=== PATIENT | female | born 1935 | race Caucasian/White ===

== ENCOUNTER 2016-05-02 10:58 | Emergency (ER) | payer MEDICARE, OTHER ==
[2016-05-02 11:36] VITALS: BP 146/75
--- NOTE | 2016-05-02 12:14 | UC ---
Ear Complaint HPI - HPI Summary HPI Summary: SEVERAL WEEKS OF LEFT EAR FULLNESS, FEELS LIKE HEARING IS MUFFLED. NO FEVER. NO SORE THROAT. NO DIZZINESS. NO HEADACHE. - History of Current Complaint Chief Complaint: UCEar Stated Complaint: EAR PLUGGED Time Seen by Provider: 05/02/16 11:27 Hx Obtained From: Patient Hx Last Menstrual Period: menopause Onset/Duration: Gradual Onset, Lasting Days, Still Present Severity Initially: Mild Severity Currently: Moderate Associated Signs/Symptoms: Positive: Hearing Loss, Foreign Body Sensation - Allergies/Home Medications Allergies/Adverse Reactions: Allergies Allergy/AdvReac Type Severity Reaction Status Date / Time No Known Allergies Allergy Verified 09/28/15 10:27 PMH/Surg Hx/FS Hx/Imm Hx Previously Healthy: Yes Endocrine History Of: Denies: Diabetes, Thyroid Disease Cardiovascular History Of: Reports: Cardiac Disorders, Pacemaker/ICD, Congestive Heart Failure, Atrial Fibrillation Denies: Hypertension Respiratory History Of: Reports: COPD, Asthma GI/ History Of: Denies: Ulcer Cancer History Of: Denies: Breast Cancer - Surgical History Surgical History: Yes Surgery Procedure, Year, and Place: Pacer, AID, Left ARTIFICIAL HIP - Family History Known Family History: Negative: Respiratory Disease - Social History Occupation: Retired Lives: With Family Alcohol Use: Weekly Substance Use Type: None Smoking Status (MU): Former Smoker Amount Used/How Often: 1 PPD X 40 YRS When Did the Patient Quit Smoking/Using Tobacco: 1991 Review of Systems Constitutional: Negative Skin: Negative Eyes: Negative ENT: Ear Ache Respiratory: Negative Cardiovascular: Negative Gastrointestinal: Negative Genitourinary: Negative Motor: Negative Neurovascular: Negative Musculoskeletal: Negative Neurological: Negative Psychological: Negative All Other Systems Reviewed And Are Negative: Yes Physical Exam Triage Information Reviewed: Yes Appearance: Well-Appearing, No Pain Distress, Well-Nourished Vital Signs: Initial Vital Signs Temp 98.6 F 05/02/16 11:28 Pulse 68 05/02/16 11:28 Resp 18 05/02/16 11:28 BP 146/75 05/02/16 11:28 Pulse Ox 94 05/02/16 11:28 Vital Signs Reviewed: Yes Eye Exam: Normal ENT: Positive: Hearing grossly normal, Pharynx normal, TMs normal - S/P BILATERAL EAR IRRIGATION, Other: - BILATERAL CERUMEN IMPACTION Dental Exam: Normal Neck exam: Normal Neck: Positive: Supple, Nontender, No Lymphadenopathy Respiratory Exam: Normal Respiratory: Positive: Chest non-tender, Lungs clear, Normal breath sounds, No respiratory distress, No accessory muscle use Cardiovascular Exam: Normal Cardiovascular: Positive: RRR, No Murmur, Pulses Normal, Brisk Capillary Refill Abdominal Exam: Normal Abdomen Description: Positive: Nontender, No Organomegaly Musculoskeletal Exam: Normal Neurological Exam: Normal Psychological Exam: Normal Skin Exam: Normal Ear Complaint Course/Dx - Differential Dx/Diagnosis Differential Diagnosis/HQI/PQRI: Otitis Externa, Otitis Media, Perforated TM, Pharyngitis, URI Provider Diagnoses: BILATERAL CERUMEN IMPACTION Discharge - Discharge Plan Condition: Stable Disposition: HOME Patient Education Materials: Cerumen Impaction (ED) Referrals: Loulou Montesinos MD [Primary Care Provider] -
== END 2016-05-02 12:24 | disposition home or self-care (01) ==
LOC: UCEAST 10:58
DX: H61.23 Impacted cerumen, bilateral (principal); Z87.891 Personal history of nicotine dependence; Z51.81 Encounter for therapeutic drug level monitoring; Z79.01 Long term (current) use of anticoagulants; I48.2 Chronic atrial fibrillation; R03.0 Elevated blood-pressure reading, without diagnosis of hypertension
CPT/HCPCS: 69210; 99212; 99213; G0463

== ENCOUNTER 2017-08-22 07:26 | Emergency (ER) | payer MEDICARE, OTHER ==
[2017-08-22 07:39] VITALS: BP 134/77
--- NOTE | 2017-08-22 08:27 | RAD ---
INDICATION: Pain at base of LEFT thumb post fall yesterday. Swelling. COMPARISON: No relevant prior exams [place] [facility] [place]. TECHNIQUE: AP, lateral, and oblique views LEFT hand. AP, lateral, and oblique views LEFT wrist REPORT: Mild hyperextension at the first metacarpal phalangeal joint noted. Negative for dislocation at the hand or wrist. Subtle longitudinal lucencies at the base of the first metacarpal are indeterminant and may reflect a nondisplaced intra-articular fracture. There is advanced joint space narrowing, subchondral sclerosis, and subchondral cystic change as well as mild osteophytosis at the trapezium first metacarpal articulation. Advanced osteoarthritis also present at the distal interphalangeal joints. Nonfocal soft tissue swelling about the wrist and hand. IMPRESSION: 1. Potential grossly nondisplaced intra-articular fracture at the base of the first metacarpal. 2. 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
--- NOTE | 2017-08-22 08:27 | RAD ---
INDICATION: Pain at base of LEFT thumb post fall yesterday. Swelling. COMPARISON: No relevant prior exams available on the [facility] [place] PACS for comparison. TECHNIQUE: AP, lateral, and oblique views LEFT hand. AP, lateral, and oblique views LEFT wrist REPORT: Mild hyperextension at the first metacarpal phalangeal joint noted. Negative for dislocation at the hand or wrist. Subtle longitudinal lucencies at the base of the first metacarpal are indeterminant and may reflect a nondisplaced intra-articular fracture. There is advanced joint space narrowing, subchondral sclerosis, and subchondral cystic change as well as mild osteophytosis at the trapezium first metacarpal articulation. Advanced osteoarthritis also present at the distal interphalangeal joints. Nonfocal soft tissue swelling about the wrist and hand. IMPRESSION: 1. Potential grossly nondisplaced intra-articular fracture at the base of the first metacarpal. 2. 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
--- NOTE | 2017-08-22 08:49 | UC ---
Balta Fontanez Tenzin, scribed for Carol Doran MD on 08/22/17 at 0845 . Minor Trauma HPI - HPI Summary HPI Summary: Pt is an 82 years old female presenting to the complaining of pain in her left knee, hand and shoulder from a fall yesterday. Pt rates the pain at 3/10 in severity and describes it as aching. Pt reports that she was in parking lot yesterday lost her balance and fell. She reports that she did not LOC. Pt denies head or neck pain. Pt has been ambulating without difficulty since. pt with mild discomfort and swelling on left hand, palmar aspect. mild discomfort with movement of thumb - wanted to get checked. No open wounds. No other injuries or complaints. No aggravating and alleviating factors were noted. She took Tylenol for the pain. She takes one aspirin a day and is on a Eliquis for a fib Denies syncope, head or neck pain. She sees a physical therapist knees. Pt's medications reviewed this visit - History of Current Complaint Chief Complaint: UCTrauma Stated Complaint: HAND INJURY Hx Obtained From: Patient Hx Last Menstrual Period: menopause Onset/Duration: Gradual Onset, Still Present Severity Currently: Mild Pain Intensity: 3 Pain Scale Used: 0-10 Numeric Mechanism Of Injury: Fall From A Standing Position Aggravating Factor(s): Nothing Alleviating Factor(s): Nothing - Allergies/Home Medications Allergies/Adverse Reactions: Allergies Allergy/AdvReac Type Severity Reaction Status Date / Time No Known Allergies Allergy Verified 09/28/15 10:27 Home Medications: Home Medications Apixaban* [Eliquis*] 5 mg PO DAILY 08/22/17 [History Confirmed 08/22/17] Furosemide [Furosemide] 20 mg PO DAILY 08/22/17 [History Confirmed 08/22/17] Potassium Chlor TAB* [Klor Con ER TAB 10 MEQ*] 1 tab PO DAILY 08/22/17 [History Confirmed 08/22/17] PMH/Surg Hx/FS Hx/Imm Hx - Additional Past Medical History Additional PMH: NEGATIVE: CVA. Previously Healthy: No Cardiovascular History: Cardiac Disease, Pacemaker/ICD, Atrial Fibrillation - Surgical History Surgical History: Yes Surgery Procedure, Year, and Place: Pacer, AICD, Left ARTIFICIAL HIP - Family History Known Family History: Negative: Respiratory Disease - Social History Occupation: Retired Lives: Alone Alcohol Use: Weekly Substance Use Type: None Smoking Status (MU): Former Smoker Amount Used/How Often: 1 PPD X 40 YRS When Did the Patient Quit Smoking/Using Tobacco: 1991 Review of Systems Constitutional: Negative Skin: Negative Eyes: Negative ENT: Negative Respiratory: Negative Cardiovascular: Negative Gastrointestinal: Negative Genitourinary: Negative Motor: Negative Neurovascular: Negative Musculoskeletal: Other: - left knee, hand and shoulder pain. Neurological: Negative Psychological: Negative All Other Systems Reviewed And Are Negative: Yes Physical Exam - Summary Physical Exam Summary: Vital Signs Reviewed: Yes A+Ox3, no distress Eyes: Conjunctiva Clear, GARY. EOM intact and full ENT: Hearing grossly normal TM x 2 clear, mmoist, uvula midline, no exudate, no erythema Neck: Positive: Supple Respiratory: Positive: No respiratory distress, No accessory muscle use + CTA throughout no w/r Cardiovascular: nl s1, s2 no m/r CBT <2 sec abd soft + BS nt/nd no guarding, no distension Musculoskeletal Exam: ADEN x 4 without difficulty Strength Intact, ROM Intact + flex/ext right elbow, wrsit + pronate/supinate No tenderness carpals mild discomfort base 1st MC no pain phalanges + oppons, flex/ext thumb all MCP no snuffbox pain Neurological: Positive: Alert, + sensation throughout Psychological: Positive: Normal Response To Family Skin: Positive: no rash, mild ecchymossi thenar eminence no open wounds Triage Information Reviewed: Yes Vital Signs: Initial Vital Signs Temp 98.2 F 08/22/17 07:35 Pulse 79 08/22/17 07:35 Resp 16 08/22/17 07:35 BP 134/77 08/22/17 07:35 Pulse Ox 99 08/22/17 07:35 Diagnostics - Radiology LEFT HAND X RAY Radiology Interpretation Completed By: Radiologist - IMPRESSION: 1. Potential grossly nondisplaced intra-articular fracture at the base of the first metacarpal. 2. 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 LEFT WRIST X RAY Radiology Interpretation Completed By: Radiologist - IMPRESSION: 1. Potential grossly nondisplaced intra-articular fracture at the base of the first metacarpal. 2. 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 Minor Trauma Course/Dx - Course Course Of Treatment: pt with mechanical fall yesterday - no syncope. Pt with mild discomfort base left hand (RHD) and mild ecchymosis. imaging with ? fx. thumbs spica splint applied by RN. ice. elevate. ortho. no concern for palmar hematoma. pt comfortable with plan - Differential Dx/Diagnosis Provider Diagnoses: 1st MC fx right non displaced Discharge - Sign-Out/Discharge Documenting (check all that apply): Discharge/Admit/Transfer - Discharge Plan Condition: Stable Disposition: HOME Patient Education Materials: Finger Fracture (ED) Referrals: Yasmine Irwin MD [Medical Doctor] - Loulou Montesinos MD [Primary Care Provider] - Additional Instructions: - wear splint as much as possible until you are seen in follow-up - Okay to take tylenol every 6 hours for pain. Take with food - Okay to apply ice (wrapped in a towel) 20 minutes at a time, 2-3 times a day -Contact your orthopedic doctor's office (Dr. Irwin) to schedule a follow-up appointment. -contact Dr. Irwin or your doctor with questions or concerns - Billing Disposition and Condition Condition: STABLE Disposition: Home The documentation as recorded by the Balta angulo Tenzin accurately reflects the service I personally performed and the decisions made by , Carol Doran MD.
== END 2017-08-22 08:50 | disposition home or self-care (01) ==
LOC: UCEAST 07:26
DX: S62.235A Other nondisplaced fracture of base of first metacarpal bone, left hand, initial encounter for closed fracture (principal); M25.562 Pain in left knee; M25.512 Pain in left shoulder; W18.30XA Fall on same level, unspecified, initial encounter; Y93.9 Activity, unspecified; Y92.481 Parking lot as the place of occurrence of the external cause; Z87.891 Personal history of nicotine dependence; Z95.0 Presence of cardiac pacemaker; Z96.642 Presence of left artificial hip joint
CPT/HCPCS: 99212; G0463

== ENCOUNTER 2017-09-17 08:20 | Inpatient (IN) | payer MEDICARE, OTHER ==
--- NOTE | 2017-09-04 15:56 | HP ---
HISTORY AND PHYSICAL: DATE OF ADMISSION/SURGERY: 09/17/17 DATE OF OFFICE VISIT: 09/04/17 SURGEON: Yasmine Irwin MD * (DICTATED BY VAN MARCH) PROCEDURE: Left total knee arthroplasty. CHIEF COMPLAINT: Left knee pain. HISTORY OF PRESENT ILLNESS: Ms. Pollard is an 82-year-old female with continued complaints of left knee pain. She has failed conservative treatment and elected to proceed with a left total knee arthroplasty, which is scheduled for 09/17/17. PAST MEDICAL HISTORY: AFib, COPD, pacemaker, cardiomyopathy, and sleep apnea. PAST SURGICAL HISTORY: Left total hip arthroplasty, pacemaker implantation x2, appendectomy, and breast biopsy. CURRENT MEDICATIONS: 1. Eliquis 5 mg twice daily. 2. Symbicort 2 puffs twice daily. 3. Coreg 25 mg twice a day. 4. Furosemide 20 mg daily. 5. Klor-Con 10 mEq daily. 6. Oxygen 2 L at night. 7. Tudorza Pressair 2 puffs daily. 8. Losartan potassium 25 mg once a day. 9. Calcium with vitamin D. 10. Multivitamin. 11. Tylenol as needed. ALLERGIES: No allergies. FAMILY HISTORY: Stroke and rheumatoid arthritis. SOCIAL HISTORY: An 82-year-old female, she lives alone. She does not smoke or use drugs. Uses occasional alcohol. REVIEW OF SYSTEMS: A complete 14-point review of systems was reviewed with the patient, positive for COPD and shortness of breath. She denies history of DVT, PE, hepatitis, HIV, or anesthesia problems. PHYSICAL EXAMINATION GENERAL: She is well developed, well nourished, in no acute distress. VITAL SIGNS: She stands 65 inches tall, weighs 188 pounds. Her blood pressure is 114/70 and her heart rate is 82. HEENT: Normocephalic, atraumatic. NECK: Supple. No palpable lymph nodes. PULMONARY: The lungs are clear to auscultation bilaterally. CARDIO: Regular rate and rhythm. Strong S1, S2. ABDOMEN: Soft, nontender, nondistended. NEUROLOGICAL: She is alert and oriented x3. MUSCULOSKELETAL: Left lower extremity: The skin is intact. No open wounds or abrasions. She has a moderate joint effusion. She has some tenderness over the medial and lateral joint lines. Range of motion is 15 to 120 degrees of flexion with patellofemoral crepitus. She is distally neurovascularly intact. ASSESSMENT AND PLAN: Ms. 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 She has failed conservative treatment and elected to proceed with a left total knee arthroplasty, which is scheduled for 09/17/[address] Irwin discussed the risks and the benefits of the surgery at today's visit and all of her questions were answered. She will follow up with Dr. Irwin 2 weeks after the surgery. VAN MARCH [id number]/[facility] #: [id number] TEJAL
[~2017-09-17 08:20] MED LIST: Buffered Lidocaine 0.9% SYRIN* 5 ML/SYR SYRINGE INTRADERM ONE; Famotidine IV* 10 MG/ML 2 ML (20 mg) IV ONE; Gabapentin CAP(*) 300 MG PO ONE
[2017-09-17] MEDS ORDERED: ceFAZolin 2 GM PREMIX (*) 2 GM/50 ML BAG IVPB ONE (08:57)
[2017-09-17] MEDS ORDERED: Famotidine IV* 10 MG/ML 2 ML (20 mg) ONE (09:19)
[2017-09-17] MEDS ORDERED: Gabapentin CAP(*) 300 MG ONE (09:20)
[2017-09-17] MEDS ORDERED: fentaNYL* 50 MCG/ML 2 ML VIAL (100 MCG VIAL) ONE (09:27)
[2017-09-17] MEDS ORDERED: Midazolam* 1 MG/ML 5 ML VIAL (5 MG) ONE (09:27)
[2017-09-17 10:10] LABS: INR 0.95 (0.77-1.02)
[2017-09-17] MEDS ORDERED: Lidocaine 2% PF * 5 ML VIAL ONE ×2 (11:07→12:33)
[2017-09-17] MEDS ORDERED: ROPIVACAINE 5 MG/ML 30 ML BTL (0.5%) ONE (11:07)
[2017-09-17] MEDS ORDERED: Bupivacaine 0.5% PF 10 ML VIAL INJ ONE (11:39)
[2017-09-17] MEDS ORDERED: Ketorolac INJ* 30 MG/ML 1 ML VIAL ONE (12:33)
[2017-09-17] MEDS ORDERED: Ondansetron INJ* 2 MG/ML VIAL ONE (12:33)
[2017-09-17] MEDS ORDERED: Bupivacaine-MPF SPINAL* 7.5 MG/ML - 2ML AMP ONE (12:33)
[2017-09-17] MEDS ORDERED: Glycopyrrolate IV* 0.2 MG/ML 1 ML VIAL ONE (12:33)
[2017-09-17] MEDS ORDERED: Dexamethasone IV* 4 MG/ML 1 ML (4 MG) ONE (12:33)
[2017-09-17] MEDS ORDERED: Phenylephrine IV* 40 MCG/ML 10 ML SYRINGE ONE (13:14)
[2017-09-17] MEDS ORDERED: HYDROmorphone INJ* 0.5 MG/0.5 ML SYRINGE IV PRN (13:18)
[2017-09-17] MEDS ORDERED: oxyCODONE TAB* 5 MG TAB PO PRN ×2 (13:18→14:29)
[2017-09-17] MEDS ORDERED: Acetaminophen TAB* 325 MG PO PRN (13:18)
[2017-09-17] MEDS ORDERED: DiMENhydriNATE IV* 50 MG/ML VIAL IV PUSH PRN (13:18)
[2017-09-17] MEDS ORDERED: Naloxone* 0.4 MG/ML 1 ML VIAL IV PRN (13:18)
[2017-09-17] MEDS ORDERED: Gabapentin CAP(*) 100 MG PO ONE (13:19)
[2017-09-17] MEDS ORDERED: Ondansetron TAB* 4 MG PO PRN (14:29)
[2017-09-17] MEDS ORDERED: Ondansetron INJ* 2 MG/ML VIAL IV PRN (14:29)
[2017-09-17] MEDS ORDERED: oxyCODONE/Acetamin 5/325 MG* TAB PO PRN (14:29)
[2017-09-17] MEDS ORDERED: Cyclobenzaprine TAB* 10 MG PO PRN (14:29)
[2017-09-17] MEDS ORDERED: Bisacodyl SUPP* 10 MG SUPP PR PRN (14:29)
[2017-09-17] MEDS ORDERED: Magnesium Hydroxide LIQ* 30 ML UDC PO PRN (14:29)
[2017-09-17] MEDS ORDERED: Morphine VIAL* 4 MG/ML VIAL (1 ml vial) IV PRN (14:29)
[2017-09-17] MEDS ORDERED: diPHENhydraMINE IV* 50 MG/ML 1 ml VIAL (BENADRYL) IV PRN (14:29)
[2017-09-17] MEDS ORDERED: Polyethylene Glycol 3350* 17 GM PACKET PO PRN (14:29)
[2017-09-17] MEDS ORDERED: Gabapentin CAP(*) 100 MG ONE (15:34)
--- NOTE | 2017-09-17 15:37 | RAD ---
HISTORY: s/p left TKA COMPARISONS: None VIEWS: 2, Frontal and lateral views of the left knee FINDINGS: BONE DENSITY: Normal. BONES: The patient is status post left knee arthroplasty. There is no hardware failure or osteolysis. JOINTS: The patient is status post left knee arthroplasty. ALIGNMENT: There is no dislocation. SOFT TISSUES: Unremarkable. OTHER FINDINGS: There is post surgical change to the soft tissues. IMPRESSION: STATUS POST LEFT KNEE ARTHROPLASTY
[2017-09-17] MEDS: oxyCODONE/Acetamin 5/325 MG* TAB PO PRN (17:43)
[2017-09-17] MEDS ORDERED: Warfarin TAB(*) 4 MG PO ONE (17:45)
[2017-09-17] MEDS ORDERED: Losartan TAB* 25 MG PO SCH (18:00)
[2017-09-17] MEDS: ceFAZolin 1 GM in Dextrose (*) 1 GM/50 ML BAG IVPB SCH (19:53)
[2017-09-17] MEDS ORDERED: Mometasone/Formoter 200/5 MDI INH SCH (21:00)
[2017-09-17] MEDS ORDERED: Aclidinium POWDER MDI(NF) INH SCH (21:00)
--- NOTE | 2017-09-17 21:10 | CONS ---
CONSULTATION REPORT: DATE OF CONSULT: 09/17/17 REFERRED FROM: Dr. Irwin. REFERRED TO: Dr. Rogers. CHIEF COMPLAINT: Left knee pain. REASON FOR CONSULTATION: Medical co-management. HISTORY OF PRESENT ILLNESS: Mrs. Pollard is a pleasant 82-year-old female who carries past medical history significant for hypertension, atrial fibrillation, COPD, cardiomyopathy as well as sleep apnea who was evaluated at [facility] orthopedic office to consider left total knee replacement. The patient unfortunately suffered from chronic left knee pain that failed conservative treatment and she was found to be a good candidate to proceed with left total knee arthroplasty to be scheduled on a later date. The patient presented to the operating room earlier today and had her left knee total replacement and was transferred to the surgical floor after brief recovery period. She denied any significant pain and she was eating dinner. She denied any chest pain, palpitations, shortness of breath, headache, or syncope. We were asked to see the patient for further evaluation and for medical co- management given her chronic medical issues. PAST MEDICAL HISTORY: Significant for: 1. Hypertension. 2. Atrial fibrillation, for which she has been on Eliquis. 3. COPD. 4. Cardiomyopathy. 5. Pacemaker placement. 6. Sleep apnea. 7. Osteoarthritis. PAST SURGICAL HISTORY: Significant for: 1. Left total hip arthroplasty. 2. Pacemaker implantation x2. 3. Appendectomy. 4. Breast biopsy. 5. Postop day #0, status post left total knee arthroplasty. CURRENT MEDICATIONS: Her medications at home include: 1. Eliquis 5 mg p.o. b.i.d. 2. Calcium with vitamin D3 one tablet p.o. daily. 3. Coreg 25 mg p.o. b.i.d. 4. Lasix 20 mg p.o. daily. 5. Losartan 25 mg p.o. daily. 6. Multivitamins 1 tablet a day. 7. Potassium chloride 10 mEq 1 tablet p.o. daily. 8. Symbicort 160/4.5 two puffs inhaled b.i.d. 9. Tudorza 1 puff inhaled b.i.d. ALLERGIES: She has no known drug allergies. FAMILY HISTORY: Significant for stroke and rheumatoid arthritis, but denies any family history of malignancies. SOCIAL HISTORY: She is a nonsmoker who denies illicit drug use. She drinks alcohol occasionally. She is a functional 82-year-old who lives alone. REVIEW OF SYSTEMS: See HPI, otherwise 14-point review of systems was examined and was otherwise negative. PHYSICAL EXAMINATION: She is a pleasant, healthy-appearing elderly female, in no acute distress or discomfort at the time of consultation. Vitals revealed temperature of 98.1, pulse of 75, blood pressure 129/73, respirations of 16, and O2 sat of 100% on room air. HEENT: Head is normocephalic, atraumatic. Sclerae anicteric. PERRLA. EOMs intact. Oropharynx is pink and moist. Neck: Supple. Trachea midline. No cervical adenopathy, thyromegaly, or JVD. Lungs : Clear to auscultation bilaterally. Heart: Regular rate and rhythm. Normal S1 and S2 without rubs, murmurs, or gallops. Back: With normal curvature. No CVA tenderness. Abdomen: Soft, nontender, and nondistended. No hernias, masses , or hepatosplenomegaly. Extremities: Without cyanosis, clubbing, or edema. Left lower extremity with Sukh wrap intact and cooling device around left knee. Pedal pulse is 2+. Neurologic: She is awake, alert, and oriented x4. Rest of neurologic exam is essentially normal. Rectal exam deferred at this time. IMPRESSION: An 82-year-old female who is postop day #0, status post left total knee replacement who has past medical history of hypertension, COPD, and remote of atrial fibrillation for which we were asked to see the patient for medical co - management. ASSESSMENT AND PLAN: 1. Status post left total knee replacement and management by orthopedic team, PT and OT to assess the patient in the morning. She appears to be comfortable at this point with good pain control. 2. Hypertension. We will hold off her furosemide and losartan for the next couple of days and may resume it on or upon discharge to home. I would continue her Coreg at this time and hold her Eliquis per orthopedic team until she is ready for discharge. 3. Chronic obstructive pulmonary disease. The patient will continue to take her inhalers. Some of them might not be on the formulary in the hospital and she already brought them from home and will be verified by the pharmacy and to be used as prescribed at home. 4. DVT prophylaxis. She is on subcu Lovenox and bridged to Eliquis hopefully upon discharge. 5. Code status. She is a full code. TIME SPENT: Approximately 45 minutes spent on consultation of this patient, of which greater than 50% on taking history and performing physical exam. I have discussed the case with my attending, who agreed to plan of care. VAN CHEUNG [id number]/[facility] #: [id number] TEJAL
[2017-09-17] MEDS: Carvedilol TAB* 25 MG PO SCH (21:11)
[2017-09-17] MEDS: Docusate CAP* 100 MG PO SCH (21:11)
[2017-09-17] MEDS: Magnesium Hydroxide LIQ* 30 ML UDC PO SCH (21:12)
[2017-09-17] MEDS: PTO: Aclidinium POWDER MDI(NF) INH SCH (21:48)
[2017-09-18] MEDS: oxyCODONE/Acetamin 5/325 MG* TAB PO PRN ×3 (03:22→12:45)
[2017-09-18] MEDS: ceFAZolin 1 GM in Dextrose (*) 1 GM/50 ML BAG IVPB SCH ×2 (04:06→11:45)
[2017-09-18 06:36] LABS: Hematocrit 34 % (35-47); Hemoglobin 11.2 g/dl (12.0-16.0); Mean Platelet Volume 8.3 um3 (7.4-10.4); Platelet Count 148 10^3/ul (150-450)
[2017-09-18 06:52] LABS: EGFR Non-African American 68.3 (>60)
[2017-09-18] MEDS: Potassium Chlor TAB* 10 MEQ TAB.ER PO SCH (08:19)
[2017-09-18] MEDS: Carvedilol TAB* 25 MG PO SCH ×2 (08:21→20:06)
[2017-09-18] MEDS: Docusate CAP* 100 MG PO SCH ×2 (08:21→20:06)
[2017-09-18] MEDS: Magnesium Hydroxide LIQ* 30 ML UDC PO SCH ×2 (08:21→20:09)
[2017-09-18] MEDS: PTO: Aclidinium POWDER MDI(NF) INH SCH ×2 (08:22→19:35)
[2017-09-18] MEDS: PTO: Budesonide/Formote 160/4.5(NF) MDI INH SCH ×2 (08:22→19:35)
[2017-09-18] MEDS ORDERED: Furosemide TAB* 20 MG PO SCH (09:00)
--- NOTE | 2017-09-18 11:13 | PN ---
Progress Note - Progress Note Date of Service: 09/18/17 SOAP: Subjective: []Patient seen oob in chair. She reports she is feeling well with tolerable left knee pain. She reports she has not yet worked with physical therapy. Denies any chest pain, shortness of breath, dizziness or nausea. Objective: [] Vital Signs Temp 97.7 F 09/18/17 07:20 Pulse 75 09/18/17 07:20 Resp 18 09/18/17 08:15 BP 121/74 09/18/17 07:20 Pulse Ox 98 09/18/17 08:00 Intake & Output 09/17/17 09/18/17 09/18/17 18:59 06:59 18:59 Intake Total 2200 1940 360 Output Total 150 575 Balance 2050 1365 360 Weight 184 lb 15.838 oz Intake: IV Fluids 2200 985 LR 1000 985 Lactated Ringer's 1100 NS 100ML, Cefazolin 2G 100 IVPB 55 ABX - CEFAZOLIN 55 Oral 900 360 Output: Urine 225 Hayes 150 350 Other: # Bowel Movements 0 Laboratory Last Values Hgb 11.2 g/dl (12.0-16.0) L 09/18/17 06:19 Hct 34 % (35-47) L 09/18/17 06:19 Plt Count 148 10^3/ul (150-450) L 09/18/17 06:19 MPV 8.3 um3 (7.4-10.4) 09/18/17 06:19 INR (Anticoag Therapy) 1.00 (0.77-1.02) 09/18/17 06:19 Sodium 141 mmol/L (135-145) 09/18/17 06:19 Potassium 4.3 mmol/L (3.5-5.0) 09/18/17 06:19 Chloride 107 mmol/L (101-111) 09/18/17 06:19 Carbon Dioxide 29 mmol/L (22-32) 09/18/17 06:19 Anion Gap 5 mmol/L (2-11) 09/18/17 06:19 BUN 22 mg/dL (6-24) 09/18/17 06:19 Creatinine 0.80 mg/dL (0.51-0.95) 09/18/17 06:19 Est GFR ( Amer) 82.7 (>60) 09/18/17 06:19 Est GFR (Non-Af Amer) 68.3 (>60) 09/18/17 06:19 BUN/Creatinine Ratio 27.5 (8-20) H 09/18/17 06:19 Glucose 150 mg/dL (70-100) H 09/18/17 06:19 Calcium 8.2 mg/dL (8.6-10.3) L 09/18/17 06:19 General: Well appearing, NAD LLE: Left knee cryo unit and dressing intact. DF/PF intact. DP2+, capillary refill less than two seconds distally. Sensation intact distally. BL calves supple and nontender without erythema, edema or palpable cords Assessment: []POD 1 sp left total knee arthroplasty Plan: []WBAT PT/OT DVT prophylaxis: patient takes eliquis at home. She will be on lovenox in house and will transition to eliquis at her normal dose upon discharge.
[2017-09-18] MEDS: Enoxaparin(*) 30 MG/0.3 ML SYR SUBCUT SCH (11:46)
--- NOTE | 2017-09-18 12:26 | OP ---
DATE OF OPERATION: 09/17/17 - ROOM #350 DATE OF : 31 SURGEON: Yasmine Irwin MD MISSILE FACILITIES REPAIRER: VAN May. Wallace did help throughout the procedure with preparation of the leg, wound retraction, manipulation of the knee, and wound closure. ANESTHESIOLOGIST: Reshma Zamarripa MD ANESTHESIA: General. PRE-OP DIAGNOSIS: Severe end-stage degenerative osteoarthritis of the left knee joint. POST-OP DIAGNOSIS: Severe end-stage degenerative osteoarthritis of the left knee joint. OPERATIVE PROCEDURE: Left total knee arthroplasty. INDICATIONS: Ms. Pollard is an 82-year-old female with years of increasingly severe left knee pain. Radiographs showed [id number] arthritis. She failed conservative treatment with antiinflammatories, pain medications, intraarticular injections, and physical therapy. Due to continued pain and decreased quality of life, the patient elected to undergo a left total knee arthroplasty. Informed consent was obtained from the patient. She understood the risks of surgery included but were not limited to bleeding, infection, damage to nearby structures, continued pain, need for further surgery, intraoperative fracture, nerve palsy, hardware failure or loosening, knee stiffness, loss of motion, stroke, heart attack, blood clot, and . She wished to proceed. TOURNIQUET TIME: 45 minutes. COMPLICATIONS: None. ESTIMATED BLOOD LOSS: 200 cc. SPECIMENS: Bone and cartilage from the left knee joint sent to Pathology. HARDWARE USED: This is [employer] cemented total knee arthroplasty hardware. Two packages of simplex bone cement. For the femur, a Legion left size 5 posterior stabilized femoral component. For the tibia, a size 4 left Tara II tibial baseplate. For the insert, a 9-mm posterior stabilized articular insert size 3-4, for the patellar, a 32, 3-peg all poly patella with 7.5 thickness. INTRAOPERATIVE FINDINGS: Intraoperatively, the patient was noted to have severe end-stage arthritis, which was tricompartmental. She had full-thickness loss of cartilage. She was noted to have significant osteopenia. The patient was noted to have 15-degree flexion contracture with tight hamstrings at the begging of the case. She was brought out into full extension during this surgery. DESCRIPTION OF PROCEDURE: Ms. Pollard was identified in the preanesthesia unit. Her left lower extremity was marked as the correct operative side. Consent was signed and placed in the chart. The patient was taken to the operating room and placed under general anesthesia. A Hayes catheter was placed. Tourniquet was placed on the left side. The left lower extremity was prepped and draped in the usual sterile fashion. Preop time-out was made to correctly identify the patient, side, and site. Appropriate perioperative antibiotics were given within 1 hour of incision. A 12-cm midline incision was made with a 10 blade and carried down to the extensor mechanism. A new 10 blade was used to make a standard medial parapatellar arthrotomy. The patella was subluxed laterally. Electrocautery was used to subperiosteally elevate the soft tissue off the superomedial tibia to the midsagittal plane. The knee was flexed up. Anterior horn of the lateral meniscus and ACL were sharply released. A drill was used to enter the distal femur. Intramedullary distal femoral cutting guide was pinned on the distal femur. Oscillating saw was used to make the distal femoral cut. External rotation guide was pinned on the distal femur and the distal femur was sized to a size 5. Size 5 multi-cutting jig was pinned on the distal femur. Oscillating saw was used to make the appropriate 4 chamfer cuts. The PCL was completely released. The tibia was subluxed anteriorly. Extramedullary tibial cutting guide was pinned on the proximal tibia. Oscillating saw was used to make a proximal tibial cut perpendicular to the mechanical axis of the tibia. The bone was carefully removed. The knee was brought out into full extension. A spacer block had good fit with the knee in full extension. There was good medial and lateral ligamentous balancing. Flexion and extension gaps were well balanced. The knee was flexed up. Lamina hospitalist was placed both medially and laterally. Any remaining meniscus was carefully removed using electrocautery. Curved osteotome was used to remove any posterior osteophytes. A tibial tray and drop shady were placed and once again confirmed a satisfactory tibial cut. Trial size 5 left femur was impacted on to the distal femur. This had excellent fit. The box for the posterior stabilized implant was prepared using a reamer and box-cut osteotome. A size 4 tibial tray trial with a 9-mm insert trial was placed and the knee was taken through range of motion. The knee had full extension to 130 degrees of flexion. There was satisfactory patellofemoral tracking. The patella was everted. 7 mm of patellar bone and cartilage was carefully removed using an oscillating saw. The patella was sized to a size 32. Size 32 guide was used to drill the 3 peg holes. A 7.5 thickness 32 patellar trial was chosen and placed. Knee was taken through range of motion. There was satisfactory patellofemoral tracking. All trials were removed. Tibia was subluxed anteriorly and sized to a size 4. Proximal tibia was prepared using a size 4 keel punch. All bony cut surfaces were copiously irrigated with sterile saline and dried. Final implants were cemented into place starting with the tibia followed by the femur and lastly the patella. A 9-mm insert trial was placed and the knee was brought out into full extension. The tourniquet was turned down at 45 minutes. The knee was copiously irrigated with sterile saline. Electrocautery was used to obtain meticulous hemostasis. Once the cement had fully cured, the insert trial was removed. Any excess cement was carefully removed from around the capsule and hardware. Final insert chosen was a 9-mm posterior stabilized articular insert size 3-4. This was locked into position on the tibial tray. Stability of the insert was checked and rechecked and noted to be stable. The knee was once again copiously irrigated with sterile saline. The extensor mechanism was closed using interrupted #1 Vicryls. The rest of the incision was closed in a layered fashion using 0 and 2-0 Vicryls. Skin was closed using running 3-0 nylon suture. Sterile Xeroform, 4x4s, and Webril were used to cover the incision. Sukh wrap and cold pack were placed over this. The patient' s anesthesia was reversed without difficulty. She was taken to the PACU in stable condition. Intended weightbearing will be weightbearing as tolerated. Intended DVT prophylaxis will be Coumadin with a Lovenox bridge. [id number]/[facility] #: [id number] TEJAL
--- NOTE | 2017-09-18 18:18 | PN ---
Subjective Date of Service: 09/18/17 Interval History: Patient seen and examined. Having episode of confusion today, pulled out IV and took off surgical dressing, Patient knows who and where she is but she said that she couldn't figure out where she was and became afraid in the room and didn't remember having surgery. Able to redirect, ortho at bedside to evaluate and RN replacing IV. Patient not in pain and seems to be trying to re-orient herself. Objective Active Medications: Acetaminophen (Tylenol Tab*) 650 mg PO Q4H PRN PRN Reason: PAIN OR TEMPERATURE Aclidinium [place] (Tudorza Press Mdi(Nf)) 1 puff INH BID [facility] Last Admin: 09/18/17 08:22 Dose: 1 puff Bisacodyl (Dulcolax Supp*) 10 mg UT DAILY PRN PRN Reason: constipation Budesonide/Formoterol Fumarate (Symbicort 160/4.5 (Nf)) 2 puff INH BID [facility] Last Admin: 09/18/17 08:22 Dose: 2 puff Carvedilol (Coreg Tab*) 25 mg PO BID [facility] Last Admin: 09/18/17 08:21 Dose: 25 mg Cyclobenzaprine HCl (Flexeril Tab*) 10 mg PO TID PRN PRN Reason: SPASMS Diphenhydramine HCl (Benadryl Iv*) 12.5 mg IV Q6H PRN PRN Reason: PRURITIS Docusate Sodium (Colace Cap*) 100 mg PO BID [facility] Last Admin: 09/18/17 08:21 Dose: 100 mg Enoxaparin Sodium (Lovenox(*)) 30 mg SUBCUT Q24H [facility] Last Admin: 09/18/17 11:46 Dose: 30 mg Lactated Ringer's (Lactated Ringers 1000 Ml Bag*) 1,000 mls @ 100 mls/hr IV PER RATE [facility] Last Admin: 09/18/17 03:10 Dose: 100 mls/hr Lactulose (Lactulose*) 30 ml PO Q6H PRN PRN Reason: constipation Magnesium Hydroxide (Milk Of Magnesia Liq*) 30 ml PO BID [facility] Last Admin: 09/18/17 08:21 Dose: 30 ml Magnesium Hydroxide (Milk Of Magnesia Liq*) 30 ml PO Q6H PRN PRN Reason: constipation Morphine Sulfate (Morphine Vial*) 2 mg IV Q2H PRN PRN Reason: PAIN Ondansetron HCl (Zofran Inj*) 4 mg IV Q6H PRN PRN Reason: nausea Ondansetron HCl (Zofran Tab*) 4 mg PO Q6H PRN PRN Reason: NAUSEA Oxycodone HCl (Roxycodone Tab*) 10 mg PO Q4H PRN PRN Reason: SEVERE PAIN Oxycodone/Acetaminophen (Percocet 5/325 Tab*) 2 tab PO Q4H PRN PRN Reason: PAIN Last Admin: 09/18/17 12:45 Dose: 2 tab Oxycodone/Acetaminophen (Percocet 5/325 Tab*) 1 tab PO Q4H PRN PRN Reason: PAIN Pharmacy Profile Note (Coumadin Daily Reminder*) 1 note FOLLOW UP 1700 [facility] Last Admin: 09/18/17 15:37 Dose: Not Given Polyethylene Glycol/Electrolytes (Miralax*) 17 gm PO DAILY PRN PRN Reason: Constipation Potassium Chloride (Klor Con Er Tab*) 10 meq PO QAM [facility] Last Admin: 09/18/17 08:19 Dose: Not Given Vital Signs - 8 hr 09/18/17 09/18/17 09/18/17 11:33 11:45 12:45 Temperature 97.7 F Pulse Rate 75 Respiratory 16 16 18 Rate Blood Pressure 96/57 (mmHg) O2 Sat by Pulse 94 Oximetry 09/18/17 09/18/17 09/18/17 15:18 15:36 16:00 Temperature 98.0 F Pulse Rate 75 Respiratory 16 16 Rate Blood Pressure 96/49 (mmHg) O2 Sat by Pulse 92 92 Oximetry Oxygen Devices in Use Now: None Appearance: alert, confused, mild distress Eyes: PERRLA Ears/Nose/Mouth/Throat: NL Teeth, Lips, Gums, Mucous Membranes Moist Neck: NL Appearance and Movements; NL JVP, Trachea Midline Respiratory: Symmetrical Chest Expansion and Respiratory Effort, Clear to Auscultation Cardiovascular: NL Sounds; No Murmurs; No JVD, No Edema Abdominal: NL Sounds; No Tenderness; No Distention Extremities: No Clubbing, Cyanosis, - - LTKA dressing redressed, suture line intact Neurological: NL Sensation Nutrition: Taking PO's Result Diagrams: 09/18/17 06:19 09/18/17 06:19 Assess/Plan/Problems-Billing Assessment: this is an 82 year old female with hx of afib, COPD, cardiomyopathy, AO and PM insertion that presented for [facility]. - Patient Problems (1) Status post total left knee replacement Code(s): Z96.652 - PRESENCE OF LEFT ARTIFICIAL KNEE JOINT SNOMED Code(s): 5661195451897 Comment: - POD1 - POC as per ortho - Pain control - OOB with PT - DVT prophy with coumadin bridge (2) Postoperative delirium Code(s): F05 - DELIRIUM DUE TO KNOWN PHYSIOLOGICAL CONDITION SNOMED Code(s): 7473198 Comment: - Likely 2/2 anesthesia, surgery and pain meds - Limit narcotics - Supportive care (3) A-fib Code(s): I48.91 - UNSPECIFIED ATRIAL FIBRILLATION SNOMED Code(s): 84069883 Comment: - Paced, stable (4) COPD (chronic obstructive pulmonary disease) Code(s): J44.9 - CHRONIC OBSTRUCTIVE PULMONARY DISEASE, UNSPECIFIED SNOMED Code(s): 68967019 Comment: - Stable on turdorza, encourage IS (5) Cardiomyopathy Code(s): I42.9 - CARDIOMYOPATHY, UNSPECIFIED SNOMED Code(s): 76161153 Comment: - EF = 35% on ECHO in 2017 - Stable on coreg (6) GERTRUDE (obstructive sleep apnea) Code(s): G47.33 - OBSTRUCTIVE SLEEP APNEA (ADULT) (PEDIATRIC) SNOMED Code(s): 54413764 Comment: - May use her own home CPAP (7) Full code status Code(s): Z78.9 - OTHER SPECIFIED HEALTH STATUS SNOMED Code(s): 599196637 Status and Disposition: Remain inpatient - dispo per ortho
[2017-09-18] MEDS: Acetaminophen TAB* 325 MG PO PRN (20:06)
[2017-09-19] MEDS: Acetaminophen TAB* 325 MG PO PRN ×4 (01:59→18:41)
[2017-09-19 05:58] LABS: Hematocrit 31 % (35-47); Hemoglobin 10.1 g/dl (12.0-16.0); Mean Platelet Volume 8.4 um3 (7.4-10.4); Platelet Count 142 10^3/ul (150-450)
[2017-09-19 06:04] LABS: INR 1.42 (0.77-1.02)
[2017-09-19] MEDS: Magnesium Hydroxide LIQ* 30 ML UDC PO SCH ×2 (08:30→20:49)
[2017-09-19] MEDS: Docusate CAP* 100 MG PO SCH ×2 (08:31→20:49)
[2017-09-19] MEDS: Carvedilol TAB* 25 MG PO SCH ×2 (08:31→20:49)
[2017-09-19] MEDS: PTO: Budesonide/Formote 160/4.5(NF) MDI INH SCH ×2 (08:32→20:29)
[2017-09-19] MEDS: PTO: Aclidinium POWDER MDI(NF) INH SCH ×2 (08:32→20:29)
[2017-09-19] MEDS: Potassium Chlor TAB* 10 MEQ TAB.ER PO SCH (08:35)
--- NOTE | 2017-09-19 11:09 | PN ---
Progress Note - Progress Note Date of Service: 09/19/17 SOAP: Subjective: [] Patient seen at bedside. She feels well and is happy with her progression with physical therapy. Denies CP, SOB, dizziness or nausea. Denies any confusion , numbness or weakness of extremities. Did have an episode of confusion yesterday which she feels has resolved. Objective: [] Vital Signs Temp 97.5 F 09/19/17 07:35 Pulse 81 09/19/17 07:35 Resp 18 09/19/17 08:00 BP 116/67 09/19/17 07:35 Pulse Ox 95 09/19/17 08:00 Intake & Output 09/18/17 09/19/17 09/19/17 18:59 06:59 18:59 Intake Total 1948 1480 716 Output Total 100 575 100 Balance 1848 905 616 Intake: IV Fluids 1108 980 396 ABX - CEFAZOLIN 113 LR 995 980 396 Oral 840 500 320 Output: Urine 100 575 100 Other: Estimated Void Small # Voids 1 Laboratory Last Values Hgb 10.1 g/dl (12.0-16.0) L 09/19/17 05:43 Hct 31 % (35-47) L 09/19/17 05:43 Plt Count 142 10^3/ul (150-450) L 09/19/17 05:43 MPV 8.4 um3 (7.4-10.4) 09/19/17 05:43 INR (Anticoag Therapy) 1.42 (0.77-1.02) H 09/19/17 05:43 Sodium 141 mmol/L (135-145) 09/18/17 06:19 Potassium 4.3 mmol/L (3.5-5.0) 09/18/17 06:19 Chloride 107 mmol/L (101-111) 09/18/17 06:19 Carbon Dioxide 29 mmol/L (22-32) 09/18/17 06:19 Anion Gap 5 mmol/L (2-11) 09/18/17 06:19 BUN 22 mg/dL (6-24) 09/18/17 06:19 Creatinine 0.80 mg/dL (0.51-0.95) 09/18/17 06:19 Est GFR ( Amer) 82.7 (>60) 09/18/17 06:19 Est GFR (Non-Af Amer) 68.3 (>60) 09/18/17 06:19 BUN/Creatinine Ratio 27.5 (8-20) H 09/18/17 06:19 Glucose 150 mg/dL (70-100) H 09/18/17 06:19 Calcium 8.2 mg/dL (8.6-10.3) L 09/18/17 06:19 General: Well appearing, NAD, carrying on appropriate conversation LLE: Left knee dressing falling down, reinforced. cryo unit in use. DF/PF intact. DP2+, capillary refill less than two seconds distally. Sensation intact distally. BL calves supple and nontender without erythema, edema or palpable cords Assessment: []POD 2 sp left total knee arthroplasty Plan: []WBAT PT/OT DVT prophylaxis: patient takes eliquis at home. She will be on lovenox in house and will transition to eliquis at her normal dose upon discharge.
[2017-09-19] MEDS: Enoxaparin(*) 30 MG/0.3 ML SYR SUBCUT SCH (11:51)
--- NOTE | 2017-09-19 15:17 | PN ---
Subjective Date of Service: 09/19/17 Interval History: Patient seen and examined. Confusion from yesterday resolved, patient feels improved, ambulating with PT without issue. Denies SOB, no chest pain, no fevers or chills. Pain well controlled on lower dose regimen. Objective Active Medications: Acetaminophen (Tylenol Tab*) 650 mg PO Q4H PRN PRN Reason: PAIN OR TEMPERATURE Last Admin: 09/19/17 12:11 Dose: 650 mg Aclidinium [place] (Tudorza Pressair Mdi(Nf)) 1 puff INH BID [facility] Last Admin: 09/19/17 08:32 Dose: 1 puff Bisacodyl (Dulcolax Supp*) 10 mg [place] DAILY PRN PRN Reason: constipation Budesonide/Formoterol Fumarate (Symbicort 160/4.5 (Nf)) 2 puff INH BID [facility] Last Admin: 09/19/17 08:32 Dose: 2 puff Carvedilol (Coreg Tab*) 25 mg PO BID [facility] Last Admin: 09/19/17 08:31 Dose: 25 mg Cyclobenzaprine HCl (Flexeril Tab*) 10 mg PO TID PRN PRN Reason: SPASMS Diphenhydramine HCl (Benadryl Iv*) 12.5 mg IV Q6H PRN PRN Reason: PRURITIS Docusate Sodium (Colace Cap*) 100 mg PO BID [facility] Last Admin: 09/19/17 08:31 Dose: 100 mg Enoxaparin Sodium (Lovenox(*)) 30 mg SUBCUT Q24H [facility] Last Admin: 09/19/17 11:51 Dose: 30 mg Lactated Ringer's (Lactated Ringers 1000 Ml Bag*) 1,000 mls @ 100 mls/hr IV PER RATE [facility] Last Admin: 09/19/17 04:39 Dose: 100 mls/hr Lactulose (Lactulose*) 30 ml PO Q6H PRN PRN Reason: constipation Last Admin: 09/19/17 14:30 Dose: 30 ml Magnesium Hydroxide (Milk Of Magnesia Liq*) 30 ml PO BID [facility] Last Admin: 09/19/17 08:30 Dose: 30 ml Magnesium Hydroxide (Milk Of Magnesia Liq*) 30 ml PO Q6H PRN PRN Reason: constipation Morphine Sulfate (Morphine Vial*) 2 mg IV Q2H PRN PRN Reason: PAIN Ondansetron HCl (Zofran Inj*) 4 mg IV Q6H PRN PRN Reason: nausea Ondansetron HCl (Zofran Tab*) 4 mg PO Q6H PRN PRN Reason: NAUSEA Oxycodone HCl (Roxycodone Tab*) 10 mg PO Q4H PRN PRN Reason: SEVERE PAIN Oxycodone/Acetaminophen (Percocet 5/325 Tab*) 2 tab PO Q4H PRN PRN Reason: PAIN Last Admin: 09/18/17 12:45 Dose: 2 tab Oxycodone/Acetaminophen (Percocet 5/325 Tab*) 1 tab PO Q4H PRN PRN Reason: PAIN Pharmacy Profile Note (Coumadin Daily Reminder*) 1 note FOLLOW UP 1700 [facility] Last Admin: 09/18/17 15:37 Dose: Not Given Polyethylene Glycol/Electrolytes (Miralax*) 17 gm PO DAILY PRN PRN Reason: Constipation Potassium Chloride (Klor Con Er Tab*) 10 meq PO QAM [facility] Last Admin: 09/19/17 08:35 Dose: Not Given Vital Signs - 8 hr 09/19/17 09/19/17 09/19/17 07:35 08:00 15:13 Temperature 97.5 F Pulse Rate 81 Respiratory 16 18 Rate Blood Pressure 116/67 (mmHg) O2 Sat by Pulse 95 95 95 Oximetry Oxygen Devices in Use Now: None Appearance: Alert, NAd Eyes: No Scleral Icterus, PERRLA Ears/Nose/Mouth/Throat: NL Teeth, Lips, Gums, Mucous Membranes Moist Neck: NL Appearance and Movements; NL JVP, Trachea Midline Respiratory: Symmetrical Chest Expansion and Respiratory Effort, Clear to Auscultation Cardiovascular: NL Sounds; No Murmurs; No JVD, RRR, No Edema Abdominal: NL Sounds; No Tenderness; No Distention Extremities: No Clubbing, Cyanosis Neurological: Alert and Oriented x 3, NL Sensation Nutrition: Taking PO's Result Diagrams: 09/19/17 05:43 09/18/17 06:19 Assess/Plan/Problems-Billing Assessment: this is an 82 year old female with hx of afib, COPD, cardiomyopathy, AO and PM insertion that presented for [facility]. - Patient Problems (1) Status post total left knee replacement Code(s): Z96.652 - PRESENCE OF LEFT ARTIFICIAL KNEE JOINT SNOMED Code(s): 3708517160621 Comment: - POD2 - POC as per ortho - Pain control - OOB with PT - DVT prophy with coumadin bridge (2) Postoperative delirium Code(s): F05 - DELIRIUM DUE TO KNOWN PHYSIOLOGICAL CONDITION SNOMED Code(s): 8262196 Comment: - Resolved, was likely 2/2 anesthesia, surgery and pain meds - Limit narcotics (3) A-fib Code(s): I48.91 - UNSPECIFIED ATRIAL FIBRILLATION SNOMED Code(s): 45537331 Comment: - Paced, stable (4) COPD (chronic obstructive pulmonary disease) Code(s): J44.9 - CHRONIC OBSTRUCTIVE PULMONARY DISEASE, UNSPECIFIED SNOMED Code(s): 41667724 Comment: - Stable on turdorza, encourage IS (5) Cardiomyopathy Code(s): I42.9 - CARDIOMYOPATHY, UNSPECIFIED SNOMED Code(s): 33890936 Comment: - EF = 35% on ECHO in 2017 - Stable on coreg (6) GERTRUDE (obstructive sleep apnea) Code(s): G47.33 - OBSTRUCTIVE SLEEP APNEA (ADULT) (PEDIATRIC) SNOMED Code(s): 39388982 Comment: - May use her own home CPAP (7) Full code status Code(s): Z78.9 - OTHER SPECIFIED HEALTH STATUS SNOMED Code(s): 872234710 Status and Disposition: Stable, dispo per ortho. Will sign off, thank you.
[2017-09-20] MEDS: Acetaminophen TAB* 325 MG PO PRN ×2 (00:17→05:51)
[2017-09-20 05:53] LABS: Hematocrit 31 % (35-47); Hemoglobin 10.3 g/dl (12.0-16.0); Mean Platelet Volume 8.8 um3 (7.4-10.4); Platelet Count 160 10^3/ul (150-450)
[2017-09-20 06:00] LABS: INR 1.11 (0.77-1.02)
[2017-09-20] MEDS: Magnesium Hydroxide LIQ* 30 ML UDC PO SCH (07:51)
[2017-09-20 08:22] VITALS: BP 111/65
--- NOTE | 2017-09-20 08:39 | PN ---
Progress Note - Progress Note Date of Service: 09/20/17 SOAP: Subjective: Pt is doing well. Progressing well with PT. Pain controlled. Denies F/C, CP/ SOB or calf pain Objective: PE- 82 y/o WDWN A&Ox3 LLE- dressing changed inc c/d/i, +DF/PF ankle, calf soft NT, +2 Dp pulse, SILT distally Vital Signs Temp Pulse Resp BP Pulse Ox 97.8 F 74 20 111/65 95 09/20/17 07:29 09/20/17 07:29 09/20/17 07:50 09/20/17 07:29 09/20/17 07:50 Laboratory Results - last 24 hr 09/20/17 09/20/17 05:38 05:38 Hgb 10.3 L Hct 31 L Plt Count 160 MPV 8.8 INR (Anticoag Therapy) 1.11 H Assessment: POD 3 sp left total knee arthroplasty Plan: WBAT cont PT/OT DC to SNF today Cont eliquis for DVT prophylaxis Tylenol for pain with percocet for breakthrough F/U 10-14 days post op with Dr. Irwin
[2017-09-20] MEDS: Potassium Chlor TAB* 10 MEQ TAB.ER PO SCH (08:45)
[2017-09-20] MEDS: Carvedilol TAB* 25 MG PO SCH (08:46)
[2017-09-20] MEDS: PTO: Aclidinium POWDER MDI(NF) INH SCH (08:47)
[2017-09-20] MEDS: PTO: Budesonide/Formote 160/4.5(NF) MDI INH SCH (08:48)
[2017-09-20] MEDS: Docusate CAP* 100 MG PO SCH (08:50)
--- NOTE | 2017-09-20 11:37 | DS ---
DISCHARGE SUMMARY: DATE OF ADMISSION: 09/17/17. DATE OF DISCHARGE: 09/20/17 PROVIDER: Dr. Yasmine Irwin.* (DICTATED BY VAN CHIN) ADMITTING DIAGNOSIS: Status post total knee arthroplasty for severe left knee osteoarthritis. SECONDARY DIAGNOSES: 1. Atrial fibrillation. 2. Chronic obstructive pulmonary disease. 3. Pacemaker. 4. Cardiomyopathy. 5. Sleep apnea. CONSULTATIONS: PT, OT, Medicine. HISTORY OF PRESENT ILLNESS: Ms. Pollard is an 82-year-old female who presents to the clinic with complaints of left knee pain due to severe end-stage osteoarthritis. She failed conservative treatment and elected to proceed with a left total knee arthroplasty with Dr. Irwin on 09/17/17. HOSPITAL COURSE: Ms. Pollard was admitted to [facility] on 09/17/17. She underwent a left total arthroplasty. Postoperatively, she recovered on the short- stay surgical unit. Postop day 1, the Hayes was removed and she was able to urinate on her own. She advanced to a regular diet without difficulty and her pain was controlled with oral Percocet and she was restarted on home medications. Labs and vitals remained stable. She was able to weight bear as tolerated on the left lower extremity. She advanced appropriately with PT and OT. DVT prophylaxis was managed with Lovenox inpatient and she will be restarted on Eliquis on discharge. By postop day 3, she was orthopedically and medically stable to discharge to a senior nursing facility for rehab. DISCHARGE CONDITION: Stable. DISCHARGE MEDICATIONS: Home medications continued on discharge to include: 1. Multivitamin 1 tab by mouth in the morning. 2. Losartan 25 mg by mouth in the evening. 3. Coreg 25 mg by mouth twice a day. 4. Tudorza Pressair 1 puff inhalation twice a day. 5. Symbicort 2 puff inhalation twice a day 160/4.5. 6. Potassium chloride tablet 10 mEq 1 by mouth in the morning. 7. Furosemide 20 mg 1 by mouth in the mornings. 8. Eliquis 5 mg 1 by mouth twice a day. 9. Calcium vitamin D 600/400 1 by mouth in the morning. New medications on discharge to include: 1. Tylenol 650 mg 1 by mouth every 4 hours as needed for pain. 2. Colace 100 mg up to 3 times a day for constipation. 3. Percocet 5/325 one to two every 4 to 6 hours as needed for pain. DISCHARGE INSTRUCTIONS: Patient is weightbearing as tolerated. It is okay for her to shower postop day 3, no bathing, submerging the wound. She should use gentle soap and pat dry, cover with a gauze, Sukh wrap, and tape. She should call the orthopedic office with increased drainage, redness, increased pain or fever and go to the ER with shortness of breath or chest pain. Diet; regular diet, increase fluids and fiber to prevent constipation. She should continue to use stool softeners and call if no bowel movements within 48 hours. She will continue physical therapy and occupational therapy exercises as shown. She will resume prehospital Eliquis for DVT prophylaxis. Her pain will be controlled with Tylenol and Percocet for breakthrough. She will require antibiotics prior to any dental work in the future, she will follow up with Dr. Irwin within 10 to 14 days after surgery. She should call with an appointment. VAN CHIN [id number]/[facility] #: [id number] TEJAL
== END 2017-09-20 10:10 | DRG 470 ==
LOC: AA 08:20 → SSU 16:37
PROVIDERS: ADMIT Orthopaedic Surgery Adult Reconstructive Orthopaedic Surgery; ATTEND Internal Medicine
PROC: 0SRD0J9 Replacement of Left Knee Joint with Synthetic Substitute, Cemented, Open Approach (ICD-10-PCS; principal; 2017-09-17 11:00)
DX: M17.0 Bilateral primary osteoarthritis of knee (principal); I48.1 Persistent atrial fibrillation; I50.22 Chronic systolic (congestive) heart failure; I42.9 Cardiomyopathy, unspecified; F05 Delirium due to known physiological condition; M25.462 Effusion, left knee; G47.33 Obstructive sleep apnea (adult) (pediatric); Z96.1 Presence of intraocular lens; M85.862 Other specified disorders of bone density and structure, left lower leg; M24.562 Contracture, left knee; M25.762 Osteophyte, left knee; G89.29 Other chronic pain; I11.0 Hypertensive heart disease with heart failure; J43.9 Emphysema, unspecified; M81.0 Age-related osteoporosis without current pathological fracture; G70.00 Myasthenia gravis without (acute) exacerbation; I08.3 Combined rheumatic disorders of mitral, aortic and tricuspid valves; E66.9 Obesity, unspecified; I27.20 Pulmonary hypertension, unspecified; Z96.642 Presence of left artificial hip joint; Z82.3 Family history of stroke; Z82.61 Family history of arthritis; Z72.89 Other problems related to lifestyle; Z79.01 Long term (current) use of anticoagulants; Z86.010 Personal history of colon polyps; Z86.19 Personal history of other infectious and parasitic diseases; Z85.828 Personal history of other malignant neoplasm of skin; Z82.49 Family history of ischemic heart disease and other diseases of the circulatory system; Z83.518 Family history of other specified eye disorder; Z83.1 Family history of other infectious and parasitic diseases; Z87.891 Personal history of nicotine dependence; Z68.29 Body mass index [BMI] 29.0-29.9, adult; Z95.810 Presence of automatic (implantable) cardiac defibrillator; Z98.42 Cataract extraction status, left eye; Z98.41 Cataract extraction status, right eye
CPT/HCPCS: 36415; 80048; 85014; 85018; 85049; 85610; 94640; A9270-GY; C1776; G8978-GP-CJ; G8978-GP-CK; G8979-GP-CI; G8980-GP-CJ; G8987-GO-CK; G8988-GO-CI; J0690; J1100; J1650; J1885; J2250; J2405; J2795; J3010

== ENCOUNTER 2018-09-06 07:53 | Emergency (ER) | payer MEDICARE, OTHER ==
[2018-09-06 08:02] VITALS: BP 135/74
--- NOTE | 2018-09-06 08:16 | UC ---
Skin Complaint HPI - HPI Summary HPI Summary: 4-5 days ago noted small red spot on R forearm. over past 2 days has gotten tender and feels like "something in there". can recall no injury or bug biteand otherwise feels well - History of Current Complaint Chief Complaint: UCSkin Time Seen by Provider: 09/06/18 08:02 Stated Complaint: SOFT TISSUE Hx Obtained From: Patient Hx Last Menstrual Period: menopause Onset/Duration: Gradual Onset Pain Intensity: 0 Character: Redness, Raised, Painful Aggravating Factor(s): Touch Alleviating Factor(s): Nothing Associated Signs & Symptoms: Positive: Tenderness. Negative: Fever, Chills, Drainage, Bruising, Red Streaks, Joint Swelling - Allergy/Home Medications Allergies/Adverse Reactions: Allergies Allergy/AdvReac Type Severity Reaction Status Date / Time No Known Allergies Allergy Verified 09/06/18 08:02 Home Medications: Home Medications Glycopyrrolate/Formoterol (NF) [Bevespi Aerospere Inhaler] 2 puff INH BID [History Confirmed 09/06/18] PMH/Surg Hx/FS Hx/Imm Hx Previously Healthy: Yes Cardiovascular History: Atrial Fibrillation Respiratory History: COPD - Surgical History Surgical History: Yes Surgery Procedure, Year, and Place: Pacer, AICD, Left ARTIFICIAL HIP, L knee replacement - Family History Known Family History: Negative: Respiratory Disease - Social History Occupation: Retired Lives: Alone Alcohol Use: Occasionally Alcohol Amount: glass of wine or ounce of scotch Substance Use Type: None Smoking Status (MU): Former Smoker Type: Cigarettes Amount Used/How Often: 1 PPD X 40 YRS Have You Smoked in the Last Year: No When Did the Patient Quit Smoking/Using Tobacco: 1991 - Immunization History Most Recent Influenza Vaccination: 2016 Most Recent Pneumonia Vaccination: 2014 Review of Systems All Other Systems Reviewed And Are Negative: Yes Constitutional: Positive: Negative Respiratory: Positive: Negative Cardiovascular: Positive: Negative Musculoskeletal: Positive: Negative Psychological: Positive: Negative Is Patient Immunocompromised?: No Physical Exam Triage Information Reviewed: Yes Appearance: Well-Appearing, No Pain Distress, Well-Nourished Vital Signs: Initial Vital Signs Temp 97.8 F 09/06/18 07:55 Pulse 75 09/06/18 07:55 Resp 16 09/06/18 07:55 BP 135/74 09/06/18 07:55 Pulse Ox 96 09/06/18 07:55 Vital Signs Reviewed: Yes Respiratory Exam: Normal Respiratory: Positive: Lungs clear Cardiovascular Exam: Normal Musculoskeletal Exam: Normal Psychological Exam: Normal Skin: Positive: Other - 8mm circular erythemic slightly raised lesion R ant forearm. small amount white purulent drainage expressed manually. no FB detected Course/Dx - Differential Diagnoses - Skin Complaint Differential Diagnoses: Abscess, Foreign Body, Local Allergic Reaction, Other - insect bite, skin infecion - Diagnoses Provider Diagnosis: Skin abscess Discharge - Sign-Out/Discharge Documenting (check all that apply): Patient Departure All imaging exams completed and their final reports reviewed: No Studies - Discharge Plan Condition: Good Disposition: HOME Patient Education Materials: Acute Wound Care (ED) Referrals: Loulou Montesinos MD [Primary Care Provider] - 2 Days (if no better) Additional Instructions: keep area clean and dry. wash wound with Hibiclens solution every day until healed and apply antibiotic ointment and bandaid Please return if you develop a fever or swelling and pain increase at anytime - Billing Disposition and Condition Condition: GOOD Disposition: Home
== END 2018-09-06 08:30 | disposition home or self-care (01) ==
LOC: UCEAST 07:53
DX: L02.413 Cutaneous abscess of right upper limb (principal); I48.91 Unspecified atrial fibrillation; J44.9 Chronic obstructive pulmonary disease, unspecified; Z87.891 Personal history of nicotine dependence; Z95.810 Presence of automatic (implantable) cardiac defibrillator; Z79.01 Long term (current) use of anticoagulants
CPT/HCPCS: 99212; G0463

== ENCOUNTER 2021-03-20 01:00 | Inpatient (IN) ==
[2021-03-20] MEDS ORDERED: Lactated Ringers 1000 ml BAG IV.FLUID IV ONE (01:04)
[2021-03-20 01:46] LABS: Activated Partial Thrombo Time 33.9 seconds (26.0-38.0); INR 2.52 (0.86-1.15)
[2021-03-20 01:47] LABS: ABS Lymphocytes 0.3 10^3/ul (1.0-4.8); ABS Monocytes 0.4 10^3/ul (0-0.8); ABS Neutrophils 9.4 10^3/ul (1.5-7.7); Eosinophil % 0.1 %; Hematocrit 31 % (35-47); Lymphocyte % 2.6 %; Mean Corpuscular HGB Conc 32 g/dL (31-36); Mean Corpuscular Hemoglobin 27 pg (27-31); Mean Corpuscular Volume 84 fL (80-97); Mean Platelet Volume 8.2 fL (7.4-10.4); Platelet Count 281 10^3/uL (150-450); Red Blood Count 3.72 10^6 /uL (3.70-4.87); Red Cell Distribution Width 16 % (10-15); White Blood Count 10.1 10^3/uL (3.5-10.8)
[2021-03-20 01:54] LABS: ALT 10 U/L (7-52); AST 14 U/L (13-39); Albumin 3.2 g/dL (3.2-5.2); Albumin/Globulin Ratio 1.1 (1-3); Alkaline Phosphatase 70 U/L (35-149); Anion Gap 9 mmol/L (2-11); Blood Urea Nitrogen 37 mg/dL (6-24); CO2 Carbon Dioxide 21 mmol/L (22-32); Calcium 8.5 mg/dL (8.6-10.3); Chloride 107 mmol/L (101-111); Globulin 2.9 g/dL (2-4); Glucose 139 mg/dL (70-100); Potassium 3.2 mmol/L (3.5-5.0); Sodium 137 mmol/L (135-145); Total Protein 6.1 g/dL (6.4-8.9); eGFR CKD-EPI 50.5 (>60)
[2021-03-20 02:12] LABS: Troponin I 0.04 ng/mL (<0.03)
[2021-03-20 02:16] LABS: Urine Appearance Cloudy; Urine Bilirubin Negative (Negative); Urine Blood Negative (Negative); Urine Color Amber; Urine Glucose Negative (Negative); Urine Ketones Negative (Negative); Urine Nitrite Negative (Negative); Urine Protein 1+(30 mg/dL) (Negative); Urine Specific Gravity 1.024 (1.002-1.030); Urine Urobilinogen Negative (Negative)
[2021-03-20 02:22] LABS: Urine Bacteria 3+ (Absent); Urine Red Blood Cell Absent (Absent); Urine White Blood Cell 1+(6-10/hpf) (Absent)
[2021-03-20] MEDS ORDERED: Albuterol HFA INHALER 8 gm MDI INH PRN (04:52)
[2021-03-20] MEDS ORDERED: Remdesivir 100 mg Vial 200 MG in NS 0.9% 250 ml 210 ML IV ONE (04:58)
[2021-03-20 06:55] LABS: INR 2.27 (0.86-1.15)
[2021-03-20 07:07] LABS: ALT 9 U/L (7-52); AST 16 U/L (13-39); Albumin/Globulin Ratio 1.1 (1-3); Alkaline Phosphatase 65 U/L (35-149); Anion Gap 10 mmol/L (2-11); Blood Urea Nitrogen 31 mg/dL (6-24); CO2 Carbon Dioxide 21 mmol/L (22-32); Calcium 8.1 mg/dL (8.6-10.3); Chloride 108 mmol/L (101-111); Globulin 2.7 g/dL (2-4); Glucose 109 mg/dL (70-100); Potassium 3.1 mmol/L (3.5-5.0); Sodium 139 mmol/L (135-145); Total Protein 5.7 g/dL (6.4-8.9); eGFR CKD-EPI 60.7 (>60)
[2021-03-20] MEDS: Tiotropium Brom/Olodaterol MDI INH SCH (09:05)
[2021-03-20] MEDS: Potassium Chlor 10 meq TAB PO SCH (09:10)
[2021-03-20] MEDS ORDERED: Potassium Chlor 20 meq TAB.ER PO ONE (13:50)
[2021-03-20 15:42] LABS: Troponin I 0.05 ng/mL (<0.03)
[2021-03-21 07:09] LABS: ABS Lymphocytes 0.4 10^3/ul (1.0-4.8); ABS Monocytes 0.6 10^3/ul (0-0.8); ABS Neutrophils 8.4 10^3/ul (1.5-7.7); Hematocrit 30 % (35-47); Lymphocyte % 4.5 %; Mean Corpuscular HGB Conc 33 g/dL (31-36); Mean Corpuscular Hemoglobin 28 pg (27-31); Mean Corpuscular Volume 84 fL (80-97); Mean Platelet Volume 8.5 fL (7.4-10.4); Nucleated Red Blood Cells % 0.1; Platelet Count 311 10^3/uL (150-450); Red Blood Count 3.63 10^6 /uL (3.70-4.87); Red Cell Distribution Width 16 % (10-15); White Blood Count 9.4 10^3/uL (3.5-10.8)
[2021-03-21 07:32] LABS: INR 2.38 (0.86-1.15)
[2021-03-21 07:35] LABS: Calcium 8.5 mg/dL (8.6-10.3); Globulin 2.9 g/dL (2-4); Potassium 3.4 mmol/L (3.5-5.0); Total Bilirubin 0.3 mg/dL (0.2-1.0); Total Protein 5.9 g/dL (6.4-8.9); eGFR CKD-EPI 64.9 (>60)
[2021-03-21] MEDS: Tiotropium Brom/Olodaterol MDI INH SCH (08:13)
[2021-03-21] MEDS ORDERED: Potassium Chlor 20 meq TAB.ER PO ONE (08:55)
[2021-03-21] MEDS: Potassium Chlor 10 meq TAB PO SCH ×2 (08:58→20:36)
[2021-03-21] MEDS: Remdesivir 100 mg Vial 100 MG in NS 0.9% 250 ml 230 ML IV SCH (08:59)
[2021-03-22 06:14] LABS: ABS Lymphocytes 0.4 10^3/ul (1.0-4.8); ABS Monocytes 0.6 10^3/ul (0-0.8); ABS Neutrophils 8.1 10^3/ul (1.5-7.7); Hematocrit 30 % (35-47); Hemoglobin 9.8 g/dL (12.0-16.0); Lymphocyte % 4.2 %; Mean Corpuscular HGB Conc 33 g/dL (31-36); Mean Corpuscular Hemoglobin 28 pg (27-31); Mean Corpuscular Volume 83 fL (80-97); Mean Platelet Volume 7.9 fL (7.4-10.4); Nucleated Red Blood Cells % 0.1; Platelet Count 291 10^3/uL (150-450); Red Blood Count 3.56 10^6 /uL (3.70-4.87); Red Cell Distribution Width 16 % (10-15); White Blood Count 9.1 10^3/uL (3.5-10.8)
[2021-03-22 06:28] LABS: INR 2.4 (0.86-1.15)
[2021-03-22 06:30] LABS: Albumin 3.1 g/dL (3.2-5.2); Albumin/Globulin Ratio 1.1 (1-3); Calcium 8.6 mg/dL (8.6-10.3); Globulin 2.7 g/dL (2-4); Total Bilirubin 0.3 mg/dL (0.2-1.0); Total Protein 5.8 g/dL (6.4-8.9)
[2021-03-22] MEDS: Tiotropium Brom/Olodaterol MDI INH SCH (08:04)
[2021-03-22] MEDS: Potassium Chlor 10 meq TAB PO SCH ×2 (09:06→20:57)
[2021-03-22] MEDS: Remdesivir 100 mg Vial 100 MG in NS 0.9% 250 ml 230 ML IV SCH (09:07)
[2021-03-23] MEDS: Tiotropium Brom/Olodaterol MDI INH SCH (08:14)
[2021-03-23 08:33] LABS: ABS Lymphocytes 0.3 10^3/ul (1.0-4.8); ABS Monocytes 0.6 10^3/ul (0-0.8); ABS Neutrophils 7.6 10^3/ul (1.5-7.7); Hematocrit 32 % (35-47); Hemoglobin 10.1 g/dL (12.0-16.0); Mean Corpuscular HGB Conc 32 g/dL (31-36); Mean Corpuscular Hemoglobin 27 pg (27-31); Mean Corpuscular Volume 84 fL (80-97); Mean Platelet Volume 7.9 fL (7.4-10.4); Nucleated Red Blood Cells % 0.1; Platelet Count 294 10^3/uL (150-450); Red Cell Distribution Width 16 % (10-15); White Blood Count 8.6 10^3/uL (3.5-10.8)
[2021-03-23 08:42] LABS: INR 2.24 (0.86-1.15)
[2021-03-23 08:56] LABS: Albumin 3.1 g/dL (3.2-5.2); Albumin/Globulin Ratio 1.1 (1-3); Calcium 8.9 mg/dL (8.6-10.3); Globulin 2.8 g/dL (2-4); Potassium 4.2 mmol/L (3.5-5.0); Total Bilirubin 0.3 mg/dL (0.2-1.0); Total Protein 5.9 g/dL (6.4-8.9); eGFR CKD-EPI 59.9 (>60)
[2021-03-23] MEDS: Potassium Chlor 10 meq TAB PO SCH (10:09)
[2021-03-23] MEDS: Remdesivir 100 mg Vial 100 MG in NS 0.9% 250 ml 230 ML IV SCH (10:09)
[2021-03-23 11:54] VITALS: BP 139/74
== END 2021-03-23 13:36 | disposition swing bed (61) | DRG 178 ==
LOC: ED 01:00 → EDHOLD 07:12 → SUATTDRO 07:12 → MED 16:39
PROVIDERS: ADMIT Internal Medicine; ATTEND Hospitalist

== ENCOUNTER 2021-03-23 14:22 | Inpatient (IN) ==
[2021-03-23] MEDS ORDERED: Albuterol HFA INHALER 8 gm MDI INH PRN (16:06)
[2021-03-23] MEDS: Potassium Chlor 20 meq TAB.ER PO SCH (19:37)
[2021-03-24] MEDS: Tiotropium Brom/Olodaterol MDI INH SCH (08:03)
[2021-03-24] MEDS: Potassium Chlor 10 meq TAB PO SCH (09:50)
[2021-03-24] MEDS: Potassium Chlor 20 meq TAB.ER PO SCH (21:47)
[2021-03-25] MEDS: Tiotropium Brom/Olodaterol MDI INH SCH (07:49)
[2021-03-25] MEDS: Potassium Chlor 10 meq TAB PO SCH (10:02)
[2021-03-25] MEDS: Potassium Chlor 20 meq TAB.ER PO SCH (20:26)
[2021-03-26] MEDS: Tiotropium Brom/Olodaterol MDI INH SCH (07:59)
[2021-03-26] MEDS: Potassium Chlor 10 meq TAB PO SCH (09:23)
[2021-03-26] MEDS: Potassium Chlor 20 meq TAB.ER PO SCH (20:27)
[2021-03-27] MEDS: Tiotropium Brom/Olodaterol MDI INH SCH (07:41)
[2021-03-27] MEDS: Potassium Chlor 10 meq TAB PO SCH (10:12)
[2021-03-27] MEDS: Lidocaine PATCH 5% PATCH TRANSDERM SCH (13:11)
[2021-03-27] MEDS: Potassium Chlor 20 meq TAB.ER PO SCH (20:38)
[2021-03-27] MEDS: Lidocaine Patch REMOVE NOTE PATCH OFF SCH (20:41)
[2021-03-28] MEDS: Lidocaine Patch REMOVE NOTE PATCH OFF SCH ×2 (03:01→19:40)
[2021-03-28] MEDS: Tiotropium Brom/Olodaterol MDI INH SCH (08:36)
[2021-03-28] MEDS: Potassium Chlor 10 meq TAB PO SCH (10:08)
[2021-03-28] MEDS: Lidocaine PATCH 5% PATCH TRANSDERM SCH (10:11)
[2021-03-28] MEDS: Potassium Chlor 20 meq TAB.ER PO SCH (19:39)
[2021-03-29] MEDS: Tiotropium Brom/Olodaterol MDI INH SCH (07:48)
[2021-03-29] MEDS: Lidocaine PATCH 5% PATCH TRANSDERM SCH (09:37)
[2021-03-29] MEDS: Potassium Chlor 10 meq TAB PO SCH (09:39)
[2021-03-29] MEDS: Potassium Chlor 20 meq TAB.ER PO SCH (20:02)
[2021-03-29] MEDS: Lidocaine Patch REMOVE NOTE PATCH OFF SCH (20:08)
[2021-03-30] MEDS: Tiotropium Brom/Olodaterol MDI INH SCH (07:09)
[2021-03-30] MEDS: Potassium Chlor 10 meq TAB PO SCH (08:03)
[2021-03-30] MEDS: Lidocaine PATCH 5% PATCH TRANSDERM SCH (08:03)
[2021-03-30] MEDS: Potassium Chlor 20 meq TAB.ER PO SCH (20:21)
[2021-03-30] MEDS: Lidocaine Patch REMOVE NOTE PATCH OFF SCH (20:23)
[2021-03-31] MEDS: Tiotropium Brom/Olodaterol MDI INH SCH (07:13)
[2021-03-31] MEDS: Potassium Chlor 10 meq TAB PO SCH (10:11)
[2021-03-31] MEDS: Lidocaine PATCH 5% PATCH TRANSDERM SCH (10:14)
[2021-03-31] MEDS: Potassium Chlor 20 meq TAB.ER PO SCH (20:31)
[2021-03-31] MEDS: Lidocaine Patch REMOVE NOTE PATCH OFF SCH (20:33)
[2021-04-01] MEDS: Tiotropium Brom/Olodaterol MDI INH SCH (07:27)
[2021-04-01] MEDS: Potassium Chlor 10 meq TAB PO SCH (07:47)
[2021-04-01] MEDS: Lidocaine PATCH 5% PATCH TRANSDERM SCH (07:48)
[2021-04-01] MEDS: Potassium Chlor 20 meq TAB.ER PO SCH (20:51)
[2021-04-01] MEDS: Lidocaine Patch REMOVE NOTE PATCH OFF SCH (21:46)
[2021-04-02] MEDS: Tiotropium Brom/Olodaterol MDI INH SCH (07:38)
[2021-04-02] MEDS: Lidocaine PATCH 5% PATCH TRANSDERM SCH (11:00)
[2021-04-02] MEDS: Potassium Chlor 10 meq TAB PO SCH (11:34)
[2021-04-02] MEDS: Lidocaine Patch REMOVE NOTE PATCH OFF SCH (20:40)
[2021-04-02] MEDS: Potassium Chlor 20 meq TAB.ER PO SCH (20:40)
[2021-04-03] MEDS: Lidocaine PATCH 5% PATCH TRANSDERM SCH (08:16)
[2021-04-03] MEDS: Potassium Chlor 10 meq TAB PO SCH (08:17)
[2021-04-03] MEDS: Tiotropium Brom/Olodaterol MDI INH SCH (08:24)
[2021-04-03] MEDS: Potassium Chlor 20 meq TAB.ER PO SCH (21:26)
[2021-04-03] MEDS: Lidocaine Patch REMOVE NOTE PATCH OFF SCH (21:28)
[2021-04-04] MEDS: Tiotropium Brom/Olodaterol MDI INH SCH (07:25)
[2021-04-04] MEDS: Potassium Chlor 10 meq TAB PO SCH (08:56)
[2021-04-04] MEDS: Lidocaine PATCH 5% PATCH TRANSDERM SCH (08:58)
[2021-04-04 10:12] LABS: Rapid COVID-19 Molecular Detected (Undetected)
[2021-04-04] MEDS: Lidocaine Patch REMOVE NOTE PATCH OFF SCH (22:45)
[2021-04-04] MEDS: Potassium Chlor 20 meq TAB.ER PO SCH (22:45)
[2021-04-05 07:55] VITALS: BP 102/61
[2021-04-05] MEDS: Tiotropium Brom/Olodaterol MDI INH SCH (08:45)
[2021-04-05] MEDS: Potassium Chlor 10 meq TAB PO SCH (08:57)
[2021-04-05] MEDS: Lidocaine PATCH 5% PATCH TRANSDERM SCH (08:58)
== END 2021-04-05 11:01 | DRG 177 ==
LOC: SUATTDRO 14:22 → MED 14:22 → SSU 04-03 09:28
PROVIDERS: ADMIT Hospitalist; ATTEND Student in an Organized Health Care Education/Training Program

== ENCOUNTER 2021-07-27 09:29 | Inpatient (IN) ==
[2021-07-27 11:43] LABS: Venous Bicarbonate HCO3 25.9 mmol/L (24-28)
[2021-07-27 11:46] LABS: ABS Lymphocytes 0.6 10^3/ul (1.0-4.8); ABS Monocytes 0.8 10^3/ul (0-0.8); ABS Neutrophils 9.8 10^3/ul (1.5-7.7); Eosinophil % 0.4 %; Hematocrit 27 % (35-47); Hemoglobin 7.9 g/dL (12.0-16.0); Lymphocyte % 5.4 %; Mean Corpuscular HGB Conc 29 g/dL (31-36); Mean Corpuscular Hemoglobin 21 pg (27-31); Mean Corpuscular Volume 70 fL (80-97); Mean Platelet Volume 7.5 fL (7.4-10.4); Nucleated Red Blood Cells % 0.1; Platelet Count 309 10^3/uL (150-450); Red Blood Count 3.83 10^6 /uL (3.70-4.87); Red Cell Distribution Width 21 % (10-15); White Blood Count 11.3 10^3/uL (3.5-10.8)
[2021-07-27 11:52] LABS: Activated Partial Thrombo Time 30.7 seconds (26.0-38.0); INR 1.94 (0.86-1.15)
[2021-07-27] MEDS ORDERED: Lactated Ringers 1000 ml BAG 1,000 ML IV SCH (12:00)
[2021-07-27 12:16] LABS: ALT 5 U/L (7-52); AST 7 U/L (13-39); Albumin 2.8 g/dL (3.2-5.2); Albumin/Globulin Ratio 1.2 (1-3); Alkaline Phosphatase 86 U/L (35-149); Anion Gap 3 mmol/L (2-11); Blood Urea Nitrogen 26 mg/dL (6-24); CO2 Carbon Dioxide 32 mmol/L (22-32); Calcium 8.8 mg/dL (8.6-10.3); Chloride 109 mmol/L (101-111); Globulin 2.4 g/dL (2-4); Glucose 102 mg/dL (70-100); Indirect Bilirubin 0.3 mg/dL (0.3-1.0); Lipase < 10 U/L (11.0-82.0); Potassium 3.7 mmol/L (3.5-5.0); Sodium 144 mmol/L (135-145); Total Protein 5.2 g/dL (6.4-8.9); eGFR CKD-EPI 80.4 (>60)
[2021-07-27 12:48] LABS: Anisocytosis 2+; Basophilic Stippling 1+; Hypochromasia 2+; Microcytosis 2+; Polychromasia 1+
[2021-07-27] MEDS ORDERED: Albuterol HFA INHALER 8 gm MDI INH PRN (17:07)
[2021-07-27] MEDS ORDERED: Furosemide 20 mg/2 ml IV VIAL IV SLOW PU ONE (17:09)
[2021-07-27] MEDS ORDERED: Piperacillin/Tazobac ADVAN 3.375 GM in NS 0.9% 100 ml BAG 100 ML IV ONE (17:43)
[2021-07-27] MEDS ORDERED: NS 0.9% 1000 ml BAG 1,000 ML IV SCH (17:45)
[2021-07-27] MEDS ORDERED: Zosyn per Pharmacy NOTE FOLLOW UP SCH (18:00)
[2021-07-27 18:37] LABS: C Reactive Protein 64.85 mg/L (<8.01); Total Iron Binding Capacity 235 mcg/dL (250-450); Transferrin 168 mg/dL (203-362)
[2021-07-27 18:56] LABS: Ferritin 12.3 ng/mL (11-307)
[2021-07-27] MEDS ORDERED: Iron Sucrose 200 MG in NS 0.9% 100 ml BAG 100 ML IVPB ONE (19:30)
[2021-07-27 19:51] LABS: % Iron Saturation 9 % (15-55); Iron < 20 ug/dL (50-212); Unsaturated Iron Binding 215 ug/dL
[2021-07-27] MEDS ORDERED: Ondansetron 4 mg VIAL 2 MG/ML 2 ml VIAL IV PRN (20:11)
[2021-07-27] MEDS: MENTHOL ZINC OXIDE TOPICAL SCH (23:10)
[2021-07-28] MEDS: ZOSYN 3.375 GM Q8H per EXTENDED INFUSION IV SCH ×3 (01:02→17:13)
[2021-07-28] MEDS ORDERED: Acetaminophen IV 1 GM/100ML 100 ML IV ONE (03:10)
[2021-07-28] MEDS ORDERED: Furosemide 20 mg/2 ml IV VIAL IV ONE (06:16)
[2021-07-28] MEDS ORDERED: Magnesium Hydroxide LIQ 30 ML UDC PO PRN (06:21)
[2021-07-28 06:45] LABS: ABS Eosinophils 0.1 10^3/ul (0-0.6); ABS Lymphocytes 0.5 10^3/ul (1.0-4.8); ABS Monocytes 0.8 10^3/ul (0-0.8); ABS Neutrophils 11.6 10^3/ul (1.5-7.7); Eosinophil % 0.4 %; Hematocrit 26 % (35-47); Hemoglobin 7.4 g/dL (12.0-16.0); Lymphocyte % 3.5 %; Mean Corpuscular HGB Conc 29 g/dL (31-36); Mean Corpuscular Hemoglobin 20 pg (27-31); Mean Corpuscular Volume 69 fL (80-97); Mean Platelet Volume 7.6 fL (7.4-10.4); Platelet Count 297 10^3/uL (150-450); Red Blood Count 3.74 10^6 /uL (3.70-4.87); Red Cell Distribution Width 21 % (10-15)
[2021-07-28 07:05] LABS: Albumin 2.5 g/dL (3.2-5.2); Albumin/Globulin Ratio 1.1 (1-3); Calcium 8.5 mg/dL (8.6-10.3); Globulin 2.3 g/dL (2-4); Magnesium 1.4 mg/dL (1.9-2.7); Total Bilirubin 0.4 mg/dL (0.2-1.0); Total Protein 4.8 g/dL (6.4-8.9); eGFR CKD-EPI 76.5 (>60)
[2021-07-28] MEDS ORDERED: Magnesium Sulf 4 GM/100 ML IV 4,000 MG/100 ML BAG IVPB ONE (07:13)
[2021-07-28] MEDS ORDERED: Acetaminophen IV 1 GM/100ML 100 ML IV PRN (07:15)
[2021-07-28] MEDS: KCL 10 MEQ/50 ML IVPREMIX 10 MEQ/50 ML BAG IV SCH ×6 (08:00→17:13)
[2021-07-28] MEDS ORDERED: Iron Sucrose 200 MG in NS 0.9% 100 ml BAG 100 ML IVPB ONE (09:00)
[2021-07-28] MEDS: MENTHOL ZINC OXIDE TOPICAL SCH ×3 (09:00→23:19)
[2021-07-28] MEDS: Tiotropium Brom/Olodaterol MDI INH SCH (09:07)
[2021-07-28] MEDS: Pantoprazole VIAL 40 MG VIAL IV SCH (09:18)
[2021-07-28] MEDS: Potassium Chlor 10 meq TAB PO SCH (09:18)
[2021-07-28] MEDS ORDERED: Morphine 2 MG/ML SYRINGE IV PRN ×2 (13:21→15:58)
[2021-07-28 14:20] LABS: Calcium 8.5 mg/dL (8.6-10.3); Potassium 3.2 mmol/L (3.5-5.0); eGFR CKD-EPI 64.9 (>60)
[2021-07-28] MEDS ORDERED: NS 0.9% 500 ml BAG 500 ML IV ONE (15:55)
[2021-07-28] MEDS: Metoprolol Tartrate 5 mg VIAL 5 ml VIAL (1 mg/ml) IV SCH (17:31)
[2021-07-28 20:50] LABS: Hematocrit 28 % (35-47); Hemoglobin 8.4 g/dL (12.0-16.0)
[2021-07-29] MEDS: ZOSYN 3.375 GM Q8H per EXTENDED INFUSION IV SCH ×2 (00:28→08:35)
[2021-07-29] MEDS: Metoprolol Tartrate 5 mg VIAL 5 ml VIAL (1 mg/ml) IV SCH ×2 (00:48→05:55)
[2021-07-29 06:54] LABS: ABS Basophils 0.1 10^3/ul (0-0.2); ABS Lymphocytes 0.5 10^3/ul (1.0-4.8); ABS Monocytes 0.9 10^3/ul (0-0.8); ABS Neutrophils 14.1 10^3/ul (1.5-7.7); Eosinophil % 0.1 %; Hematocrit 29 % (35-47); Hemoglobin 8.7 g/dL (12.0-16.0); Lymphocyte % 3.3 %; Mean Corpuscular HGB Conc 30 g/dL (31-36); Mean Corpuscular Hemoglobin 22 pg (27-31); Mean Corpuscular Volume 71 fL (80-97); Mean Platelet Volume 7.5 fL (7.4-10.4); Nucleated Red Blood Cells % 0.1; Platelet Count 317 10^3/uL (150-450); Red Blood Count 4.07 10^6 /uL (3.70-4.87); Red Cell Distribution Width 22 % (10-15); White Blood Count 15.6 10^3/uL (3.5-10.8)
[2021-07-29 07:28] LABS: Calcium 8.6 mg/dL (8.6-10.3); Magnesium 2.3 mg/dL (1.9-2.7); Potassium 3.6 mmol/L (3.5-5.0); eGFR CKD-EPI 51.7 (>60)
[2021-07-29] MEDS: MENTHOL ZINC OXIDE TOPICAL SCH ×3 (08:25→20:11)
[2021-07-29] MEDS: Potassium Chlor 10 meq TAB PO SCH (08:35)
[2021-07-29] MEDS: Pantoprazole VIAL 40 MG VIAL IV SCH (08:36)
[2021-07-29] MEDS: Tiotropium Brom/Olodaterol MDI INH SCH (09:00)
[2021-07-29] MEDS ORDERED: Metoprolol Tartrate 5 mg VIAL 5 ml VIAL (1 mg/ml) IV SCH (09:00)
[2021-07-29] MEDS ORDERED: NS 0.45% KCl 20 Meq 1000 ml 1,000 ML IV SCH (09:00)
[2021-07-29] MEDS ORDERED: Ondansetron ODT 4 mg TAB 4 MG TAB SL PRN (10:08)
[2021-07-29] MEDS ORDERED: Morphine ORAL CONCENTRATE 5 MG/0.25 ML ORAL.SYRIN PO PRN (10:08)
[2021-07-30] MEDS: Tiotropium Brom/Olodaterol MDI INH SCH (09:21)
[2021-07-30] MEDS: MENTHOL ZINC OXIDE TOPICAL SCH ×3 (09:53→19:47)
[2021-07-30 11:10] VITALS: BP 102/53
[2021-07-31] MEDS: Tiotropium Brom/Olodaterol MDI INH SCH (07:13)
[2021-07-31] MEDS: MENTHOL ZINC OXIDE TOPICAL SCH (08:24)
[2021-07-31 11:16] LABS: Rapid COVID-19 Molecular Undetected (Undetected)
== END 2021-07-31 13:40 | DRG 388 ==
LOC: ED 09:29 → EDHOLD 16:33 → SUATTDRO 16:33 → SSU 17:49
PROVIDERS: ADMIT Internal Medicine; ATTEND Internal Medicine